=== PATIENT | female | born 1960 | race Caucasian/White ===

== ENCOUNTER 2020-10-15 13:32 | Outpatient (REF) | payer OTHER, SELFPAY ==
--- NOTE | 2020-10-15 13:57 | MHC.AU.P13 ---
Hearing Instrument Problem Date of Visit: 10/15/20 Right Ear: Learning Support Teacher: Phonak Model: AUDEO M50-312 Serial Number: [id number] Repair Warranty: 12/06/21 Loss and Damage Warranty: USED Battery Size: 312 Color: [place] Shafting Worker: 1M Type of Dome: SMALL VENTED Type of Wax Guard: CERUSHIELD Left Ear: Learning Support Teacher: Phonak Model: SeeqEO M50-312 Serial Number: [id number] RepairWarranty: 12/06/21 Loss and Damage Warranty: USED Battery Size: 312 Color: [place] Shafting Worker: 1M Type of Dome: SMALL OPEN Type of Wax Guard: CERUSHIELD Follow-Up Summary: Patient brought in hearing aids - not working. Both batteries were placed in upside down. Both were clogged with wax. Hearing aids cleaned, wax guards replaced, small open dome left and small vented dome right both replaced - now amplifying clearly. Showed patient how to properly place battery in door. Recommendations: Recommendations: Hearing instrument follow-up or maintenance as needed. Signature: Provider: GILBERT Sanchez-HIS
== END 2020-10-15 13:33 | disposition home or self-care (01) ==
LOC: HO.HAP 13:32
PROVIDERS: Visit Provider Orthopaedic Surgery
DX: Z46.1 Encounter for fitting and adjustment of hearing aid (principal)
CPT/HCPCS: 92593; 99499

== ENCOUNTER 2021-01-13 10:10 | Outpatient (REF) | payer OTHER, SELFPAY | END 2021-01-13 10:11 | disposition home or self-care (01) | LOC: HO.HAP 10:10 | DX: Z46.1 Encounter for fitting and adjustment of hearing aid (principal); H90.3 Sensorineural hearing loss, bilateral | CPT/HCPCS: V5266 ==

== ENCOUNTER 2021-01-28 09:16 | Outpatient (REF) | payer OTHER, SELFPAY ==
--- NOTE | 2021-01-28 10:46 | MHC.AU.AHA ---
Adult Audiological Evaluation Date of Visit: 01/28/21 Reason for Appointment: Patient suspects there has been a decrease in hearing. She reports that even with the hearing aids she has significant difficulty hearing and her ears often feel blocked. She reports that she has been in and out of the hospital since July 2020. She also reports that during the hospitalizations, there was a medication that may have had neurological consequences (patient described as pneumonia of the head ), and she is still experiencing some of these effects. Patient has diagnosis of cirrhosis of the liver and is awaiting a liver transplant. Previous Hearing Test Results: At [facility] on 07/12/2018: Normal sloping to moderate sensorineural hearing loss bilaterally, slightly worse in the right ear Medical History: Medical History: Cirrhosis of liver (awaiting transplant), Type 2 Diabetes, Gastritis, GERD, Osteoarthritis, Asthma Hearing Instrument History- Right Ear: Correspondence School Instructor: If You Can Model: Larky M50-312 Serial Number: [id number] Battery Size: 312 Repair Warranty: 12/06/21 Loss and Damage Warranty: USED Dispensed By: [facility] Date of Fittin09/14/18 Hearing Instrument History- Left Ear: Correspondence School Instructor: If You Can Model: AUDEHerBabyShower M50-312 Serial Number: [id number] Battery Size: 312 Warranty: 12/06/21 Loss and Damage Warranty: USED Dispensed By: [facility] Date of Fittin09/14/18 Otoscopy: Right Ear: Unremarkable Left Ear: Unremarkable Tympanometry: Tympanometry performed due to: Patient reports sensation that ears are blocked/plugged. Right Ear: Normal Middle Ear System (Type A) Left Ear: Normal Middle Ear System (Type A) Hearing Evaluation: Transducer(s) Used: Insert Earphones, (Verified with) Circumaural Headphones Method: Conventional Audiometry Stimuli Used: Pure Tones Right Ear: Description of Hearing: Moderate to moderately-severe/severe sensorineural hearing loss Left Ear: Description of Hearing: Moderate to moderately-severe sensorineural hearing loss Speech Recognition Threshold (SRT): Method Used: Monitored Live Voice Stimuli Used: Spondee Words Right Ear: 65 dBHL Left Ear: 50 dBHL Word Discrimination: Method: Recorded Lists Word Lists Used: W-22 Right Ear: 48% at 85 dBHL Left Ear: 52% at 75 dBHL Most Comfortable Level (MCL): Right Ear: 85 dBHL Left Ear: 75 dBHL Comparison: Compared to most recent evaluation: Hearing has decreased significantly in both ears since 2018. Interpretation of Results: Patient's hearing has decreased signficiantly. Her current degree of hearing loss can be expected to cause significant communication difficulty. Amplification is necessary to hear and follow along with everyday conversation. Recommendations: Audiological re-evaluation is recommended in 6 months, as it is uncertain if patient's recent and on-going medical concerns are contributing to the hearing change. Follow-up with Ear, Nose, Throat is recommended to address the significant decrease in hearing. Patient's hearing aid programming was updated with today's results. Diagnosis: Primary Diagnosis: H90.3 Bilateral Sensorineural Hearing Loss Services Performed: Comprehensive Audiological Evaluation (CPT 99791), Tympanometry (CPT 41003) Signature: Provider: Sofi Gomez, CCC-A
--- NOTE | 2021-01-28 10:48 | MHC.AU.HFU ---
Hearing Instrument Follow-Up- Binaural Date of Visit: 01/28/21 Right Ear: Measurer: Phonak Model: AUDEO M50-312 Serial Number: [id number] Repair Warranty: 12/06/21 Loss and Damage Warranty: USED Battery Size: 312 Color: [place] Traffic Technician: 1M Type of Dome: Small Power Type of Wax Guard: CERUSHIELD Dispensed By: [facility] Date of Fittin09/14/18 Left Ear: Measurer: Phonak Model: AUDEO M50-312 Serial Number: [id number] Repair Warranty: 12/06/21 Loss and Damage Warranty: USED Battery Size: 312 Color: [place] Traffic Technician: 1M Type of Dome: Small Power Type of Wax Guard: CERUSHIELD Dispensed By: [facility] Date of Fittin09/14/18 Follow-Up Summary: Patient was seen today for audiological re-evaluation (see separate report for details). Hearing has decreased significantly since her last evaluation in 2018. Previous domes were replaced with power domes. New retention tails placed on receivers. Wax guards replaced. Hearing aid programming updated for today's results. Feedback manager party re-run. Patient reports significant improvement after adjustments. Recommendations: Hearing instrument follow-up or maintenance as needed. Patient will call if she feels additional adjustments are needed. Follow-up with ENT was recommended. Audio RV in 6 months was recommended. Diagnosis Code(s): Primary Diagnosis: H90.3 Bilateral Sensorineural Hearing Loss Signature: Provider: Sofi Gomez, EUGENE-A
== END 2021-01-28 09:17 | disposition home or self-care (01) ==
LOC: HO.SH 09:16
PROVIDERS: Visit Provider Nurse Practitioner Family
DX: Z46.1 Encounter for fitting and adjustment of hearing aid (principal); H90.3 Sensorineural hearing loss, bilateral
CPT/HCPCS: 92557; 92567; 92593

== ENCOUNTER 2021-05-25 09:22 | Outpatient (REF) | payer OTHER, SELFPAY ==
--- NOTE | 2021-05-25 09:57 | MHC.AU.HFU ---
Hearing Instrument Follow-Up- Binaural Date of Visit: 05/25/21 Right Ear: Flavor Tank Tender: Phonak Model: AUDEO M50-312 Serial Number: [id number] Repair Warranty: 12/06/21 Loss and Damage Warranty: USED Battery Size: 312 Color: [place] Oil Extractor: 1M Type of Dome: Small Power Type of Wax Guard: CERUSHIELD Dispensed By: [facility] Date of Fittin09/14/18 Left Ear: Flavor Tank Tender: Phonak Model: AUDEO M50-312 Serial Number: [id number] Repair Warranty: 12/06/21 Loss and Damage Warranty: USED Battery Size: 312 Color: [place] Oil Extractor: 1M Type of Dome: Small Power Type of Wax Guard: CERUSHIELD Dispensed By: [facility] Date of Fittin09/14/18 Follow-Up Summary: Patient brings with her an audiogram from [facility] showing improved hearing. The fluctuating hearing loss may be related to her medical conditions. She is being seen regularly by [facility] and still waiting for liver transplant. Having trouble with aids staying in ears when wearing the face mask. Provided and showed how to use the Phonak mask clip. Reprogrammed the hearing aids to newest audiogram with patient reporting aids sound much more comfortable. Dispensed 43 batteries. Recommendations: Recommendations: Jacobo follow-up as needed Diagnosis Code(s): Primary Diagnosis: H90.3 Bilateral Sensorineural Hearing Loss Services Performed: Number of Individual Battery Cells: 42 Signature: Provider: Adele Quiles, [facility]
== END 2021-05-25 09:23 | disposition home or self-care (01) ==
LOC: HO.HAP 09:22
PROVIDERS: Visit Provider Orthopaedic Surgery
DX: Z46.1 Encounter for fitting and adjustment of hearing aid (principal); H90.3 Sensorineural hearing loss, bilateral
CPT/HCPCS: V5266